=== PATIENT | female | born 1935 | race Caucasian/White ===

== ENCOUNTER 2017-10-28 14:24 | Outpatient (CLI) | payer MEDICARE, BC ==
--- NOTE | 2017-10-28 20:12 | MRI ---
MRI OF THORACIC SPINE PERFORMED WITH AND WITHOUT CONTRAST ENHANCEMENT: 10/28/17 HISTORY: Followup of bone lesion noted on MRI study of 12/26/16. This was an area of abnormality along the T9 vertebral body. At that time, the patient had a history of a fall and a back injury with acute compression change of T12. The compression changes of the T12 vertebral body are again noted. There is what appears to be verteb roplasty change now noted. The degree of compression is slightly increased as compared to the prior e xamination and retropulsion and kyphosis is also increased. The retropulsion is 4 to 5 mm. I do not s ee significant canal stenosis associated with this. Along the right side of the T9 vertebral body, it is a T1 hypo and T2 hyperintense lesion which shows perhaps some minimal enhancement. This is felt to be stable in size as compared to the previous exam ination. No additional abnormalities are noted. IMPRESSION: 1. Slight increased to the kyphosis and compression changes of T12 with 4 to 5 mm of bony retrop ulsion without canal stenosis. 2. 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 Given the history of a nephrectomy, it would probably still be helpful to obtain additional fo llowup. Reviewing a previous CT of the chest that was done at [facility] in 2013 showed a bird ioma of T10 but no obvious abnormality at the T9 level. A followup CT may be helpful in comparison to that previous examination if no abnormality is seen on current CT then obviously this would be less worrisome if there is some type of lytic focus seen, then lytic met would not be excluded. POS: DOREEN
== END 2017-10-28 14:25 | disposition home or self-care (01) ==
LOC: SCSMRI 14:24
PROVIDERS: ATTEND Family Medicine
DX: R93.7 Abnormal findings on diagnostic imaging of other parts of musculoskeletal system (principal); M40.204 Unspecified kyphosis, thoracic region; M89.9 Disorder of bone, unspecified; Z90.710 Acquired absence of both cervix and uterus
CPT/HCPCS: 72157; 82565

== ENCOUNTER 2018-03-17 10:16 | Outpatient (CLI) | payer MEDICARE, BC | END 2018-03-17 10:17 | disposition home or self-care (01) | LOC: BICMAMMO 10:16 | PROVIDERS: ATTEND Obstetrics & Gynecology | DX: Z12.31 Encounter for screening mammogram for malignant neoplasm of breast (principal); S72.001S Fracture of unspecified part of neck of right femur, sequela; M85.851 Other specified disorders of bone density and structure, right thigh; Z85.528 Personal history of other malignant neoplasm of kidney; Z78.0 Asymptomatic menopausal state | CPT/HCPCS: 77063; 77067; 77080 ==

== ENCOUNTER 2018-10-20 09:04 | Outpatient (CLI) | payer MEDICARE, BC ==
--- NOTE | 2018-10-20 10:05 | ULT ---
Exam: renal ultrasound with Doppler HISTORY: Left nephrectomy. Chronic kidney disease. COMPARISON: None TECHNIQUE: Grayscale, color flow, Doppler imaging and spectral wave [facility] FINDINGS: Left renal fossa is noted. No obvious masses Suboptimal evaluation the right renal cortex. Isoechoic masses easily be obscured. No hydronephrosis. Right kidney measures 7.9 cm in the short axis. Long axis measurements are reported to be 6.0 x 13.3 cm abutting image provided Renal Doppler: Right renal artery 122.2 cm/s Aorta 121.7 cm/s Right renal artery to aorta ratio 1 Right renal artery are resistive index: Upper pole 0.69, midpole 0.81, lower pole 0.66. Average arcua te artery resistive index is 0.71 Urinary bladder is unremarkable. Prevoid volume is 205 mL IMPRESSION: Limited evaluation the right renal cortical echotexture. Associated solid masses could ea sily be obscured. No hydronephrosis. Right renal arcuate artery resistive index is at the upper limits of normal.
--- NOTE | 2018-10-26 10:45 | ULT ---
Exam: renal ultrasound with Doppler HISTORY: Left nephrectomy. Chronic kidney disease. COMPARISON: None TECHNIQUE: Grayscale, color flow, Doppler imaging and spectral wave form [facility] FINDINGS: Left renal fossa is noted. No obvious masses Suboptimal evaluation the right renal cortex. Isoechoic masses easily be obscured. No hydronephrosis. Right kidney measures 7.9 cm in the short axis. Long axis measurements are reported to be 6.0 x 13.3 cm abutting image provided Renal Doppler: Right renal artery 122.2 cm/s Aorta 121.7 cm/s Right renal artery to aorta ratio 1 Right renal artery are resistive index: Upper pole 0.69, midpole 0.81, lower pole 0.66. Average arcua te artery resistive index is 0.71 Urinary bladder is unremarkable. Prevoid volume is 205 mL IMPRESSION: Limited evaluation the right renal cortical echotexture. Associated solid masses could ea sily be obscured. No hydronephrosis. Right renal arcuate artery resistive index is at the upper limits of normal. Transcribed Date/Time: 10/26/2018 10:45 AM
== END 2018-10-20 09:05 | disposition home or self-care (01) ==
LOC: SCSULT 09:04
PROVIDERS: ATTEND Internal Medicine Nephrology
DX: I12.9 Hypertensive chronic kidney disease with stage 1 through stage 4 chronic kidney disease, or unspecified chronic kidney disease (principal); N18.3 Chronic kidney disease, stage 3 (moderate); Z90.5 Acquired absence of kidney
CPT/HCPCS: 76775; 93976

== ENCOUNTER 2019-02-09 10:22 | Outpatient (CLI) | payer MEDICARE, BC ==
--- NOTE | 2019-02-09 12:00 | CT ---
Exam: CT THORACIC SPINE WITHOUT CONTRAST: COMPARISON: None. CORRELATION: MRI thoracic spine 12/26/2016. HISTORY: Chronic lower thoracic spine pain. FINDINGS: Visualized thyroid gland is slightly heterogeneous. Visualized mediastinum is unremarkable. Presumed chronic changes of the lung parenchyma. Trachea and central bronchi are patent. Visualized solid organs are grossly unremarkable. There is diffuse bone demineralization. There is previous vertebroplasty change at T12. There is mode rate loss of vertebral body height with associated retropulsion. When correlating previous MRI, there does not appear to be any significant change. Currently, there is 65% loss of vertebral body he ight. 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 No new thoracic spine fractures. IMPRESSION: Moderate compression fracture at T12, unchanged when correlating with previous thoracic spine CT. No new thoracic spine fractures. Transcribed Date/Time: 02/09/2019 12:14 PM
== END 2019-02-09 10:23 | disposition home or self-care (01) ==
LOC: SCSCT 10:22
PROVIDERS: ATTEND Specialist
DX: M54.14 Radiculopathy, thoracic region (principal); S22.089A Unspecified fracture of T11-T12 vertebra, initial encounter for closed fracture
CPT/HCPCS: 72128

== ENCOUNTER 2019-05-05 11:30 | Outpatient (CLI) | payer MEDICARE, BC ==
--- NOTE | 2019-05-05 13:14 | MMO ---
Bilateral MAMMO Bilat Screen [facility]. CLINICAL HISTORY: Patient is 83 years old and is seen for screening. The patient has no family history of breast cancer. The patient has a history of bladder cancer at age 74 and kidney cancer at age 73. VIEWS: The views performed were: bilateral mediolateral oblique with tomosynthesis; bilateral craniocaudal with tomosynthesis; left mediolateral oblique; and right craniocaudal. FILMS COMPARED: The present examination has been compared to prior imaging studies performed at [facility] on 01/18/2015, 02/12/2016, 03/11/2017 and 03/17/2018. This study has been interpreted with the assistance of computer-aided detection. MAMMOGRAM FINDINGS: There are scattered fibroglandular densities. There are no suspicious masses, suspicious calcifications, or new areas of architectural distortion. IMPRESSION: THERE IS NO MAMMOGRAPHIC EVIDENCE OF MALIGNANCY. A ROUTINE FOLLOW-UP MAMMOGRAM IN 1 YEAR IS RECOMMENDED. THE RESULTS OF THIS EXAM WERE SENT TO THE PATIENT. ACR BI-RADS Category 1 - Negative MAMMOGRAPHY NOTE: 1. A negative mammogram report should not delay a biopsy if a dominant of clinically suspicious mass is present. 2. Approximately 10% to 15% of breast cancers are not detected by mammography. 3. Adenosis and dense breasts may obscure an underlying neoplasm. Reported by: GOVIND CONTE MD Electonically Signed: [id number]
== END 2019-05-05 11:31 | disposition home or self-care (01) ==
LOC: BICMAMMO 11:30
PROVIDERS: ATTEND Obstetrics & Gynecology
DX: Z12.31 Encounter for screening mammogram for malignant neoplasm of breast (principal); Z85.51 Personal history of malignant neoplasm of bladder; Z85.528 Personal history of other malignant neoplasm of kidney
CPT/HCPCS: 77063; 77067

== ENCOUNTER 2023-06-20 14:16 | Day surgery (SDC) | payer MEDICARE, BC ==
[2023-06-20] MEDS ORDERED: PROPOFOL 20 ML ONE (14:36)
[2023-06-20] MEDS ORDERED: Succinylcholine 200 MG/10 ml SYRINGE FS ONE (14:37)
[2023-06-20] MEDS ORDERED: Dexamethasone 20 MG/5 ML VIAL ONE (14:37)
[2023-06-20] MEDS ORDERED: Ondansetron PF 4 MG/2 ML Vial ONE (14:37)
[2023-06-20] MEDS ORDERED: Lidocaine 1% PF 5 ML VIAL ONE (14:37)
[2023-06-20] MEDS ORDERED: Albuterol HFA (OR) 200 PUFF INH ONE ×2 (15:37→15:38)
== END 2023-06-20 16:51 | disposition home or self-care (01) ==
LOC: ERS 14:16 → SDC 14:16 → EDSTATUS 14:27 → SDC 16:51
PROVIDERS: ATTEND Internal Medicine
PROC: 0DJ08ZZ Inspection of Upper Intestinal Tract, Via Natural or Artificial Opening Endoscopic (ICD-10-PCS; principal; 2023-06-20)
DX: T18.128A Food in esophagus causing other injury, initial encounter (principal); R13.10 Dysphagia, unspecified; F41.9 Anxiety disorder, unspecified; M19.90 Unspecified osteoarthritis, unspecified site; I10 Essential (primary) hypertension; F10.90 Alcohol use, unspecified, uncomplicated; Z95.0 Presence of cardiac pacemaker; Z88.8 Allergy status to other drugs, medicaments and biological substances; Z91.048 Other nonmedicinal substance allergy status; Z88.0 Allergy status to penicillin; Z88.1 Allergy status to other antibiotic agents; Z85.528 Personal history of other malignant neoplasm of kidney; Z85.51 Personal history of malignant neoplasm of bladder; Z90.5 Acquired absence of kidney; Z79.01 Long term (current) use of anticoagulants; Z79.899 Other long term (current) drug therapy; W44.8XXA Other foreign body entering into or through a natural orifice, initial encounter
CPT/HCPCS: J1100; J2405; J2704